=== PATIENT | male | born 1990 | race African-American/Black ===

== ENCOUNTER 2024-03-01 07:43 | Emergency (ER) | payer BC ==
--- OUTSIDE RECORDS SUMMARY | 2024-03-01 07:46 | XMS REPORT | Continuity of Care Document ---
Author Name Unknown Address [address] [place] [address] [facility] thconnect Address [address] [place] [address] Care Team Providers Care Color Expert Name Role Phone Татьяна Barreto Primary Care Physician [phone] Immunizations Ordered Immunization Name Filled Immunization Name Date Status Comments Source IPV IPV 2023-11-23 00:00:00 Completed Vic Lu Bennie Vital Signs Vital Name Observation Time Observation Value Comments S ource Height Measured 2023-11-23 11:55:00 62.00 inches Vic Avery Body Temperature 2023-11-23 11:55:00 98.00 degrees Vic Avery Heart Rate 2023-11-23 11:55:00 54.00 /min Ivaniafrancois Lu Bennie Respiratory Rate 2023-11-23 11:55:00 Vic Avery BP Systolic 2023-11-23 11:55:00 98 mm[Hg] Step hen Tabitha Avery BP Diastolic 2023-11-23 11:55:00 65 mm[Hg] Yared Avery Weight Measured 2023-11-23 11:55:00 124.00 pounds Vic Avery Encounters Start Date/Time End Date/Time Encounter Type Admission Type Attending Clinicians Care Facility Care Department Encounter ID Source 2023-11-23 11:53:33 2023-11-23 11:53:33 Outpatient [facility] [id number] Vic Tabitha Bennie 2023-11-23 00:00:00 2023-11-23 00:00:00 Outpatient Visit [facility] [id number] Vic Avery
--- NOTE | 2024-03-01 08:00 | EDPHYS ---
Physician Documentation [facility] Name: Dann Jang Age: 33 yrs Sex: Male : 1990 Arrival Date: 03/01/2024 Time: 07:43 Bed IW1 Private MD: None, None ED Physician Mihir Martínez HPI: 03/01 10:53 This 33 yrs old Black Male presents to ER via Ambulatory with complaints of Abdominal ms3 Pain. 10:53 Dann Jang, a 33-year-old male, presents to the Emergency Department with ms3 complaints of stomach pain associated with a known history of gastritis. He reports that the pain began at around 5 AM today and rates it as a 9 out of 10 in severity. Dann has a previous gastritits, confirmed during prior visits to this facility and hospitals in [facility]. He has been treated with Protonix, which provided relief, but he has since run out of the medication. Dann reports his stools are not black or bloody. He has not followed up with any healthcare provider since his last visit, as he was instructed to return if symptoms recurred. He is seeking a refill of his medication and possibly a new prescription.. Historical: - Allergies: 07:52 dayquil (Upset stomach); iw 07:52 Tylenol (Upset stomach); iw - Home Meds: 07:52 None [Active]; iw - PMHx: 07:52 Gastroesophageal reflux disease; iw - Immunization history:: Adult Immunizations not up to date. - Infectious Disease History:: Denies. - Social history:: Smoking status: Patient denies any tobacco usage or history of. ROS: 10:53 Constitutional: Negative for fever, and chills. Neck: Negative for injury, pain, and ms3 swelling, Cardiovascular: Negative for chest pain, and palpitations. Respiratory: Negative for shortness of breath, cough, wheezing, and pleuritic chest pain, 10:53 MS/Extremity: Negative for injury and deformity, Skin: Negative for injury, rash, and discoloration, 10:53 Abdomen/GI: Positive for abdominal pain, Exam: 10:53 Constitutional: This is a well developed, well nourished patient who is awake, alert, ms3 and in no acute distress. Chest/axilla: Normal chest wall appearance and motion. Nontender with no deformity. Cardiovascular: Regular rate and rhythm with a normal S1 and S2. No gallops, murmurs, or rubs. Normal PMI, no JVD. No pulse deficits. Respiratory: Lungs have equal breath sounds bilaterally, clear to auscultation and percussion. No rales, rhonchi or wheezes noted. No increased work of breathing, no retractions or nasal flaring. Abdomen/GI: Soft, non-tender, with normal bowel sounds. No distension or tympany. No guarding or rebound. No evidence of tenderness throughout. Skin: Warm, dry with normal turgor. Normal color with no rashes, no lesions, and no evidence of cellulitis. MS/ Extremity: Pulses equal, no cyanosis. Neurovascular intact. Full, normal range of motion. Vital Signs: 07:51 BP 103 / 72; Pulse 53; Resp 16; Temp 97.1; Pulse Ox 99% on R/A; Weight 60.78 kg; Height iw 5 ft. 5 in. ; Pain 410; 07:51 Body Mass Index 22.06 (60.78 kg, 166 cm) iw 07:51 Pain Scale: Adult iw MDM: 07:58 Medical Screening Exam initiated ms3 10:53 Differential diagnosis: gastritis, non-specific abd pain, Peptic Ulcer Disease. Data ms3 reviewed: vital signs, nurses notes, and as a result, I will discharge patient. I considered the following discharge prescriptions or medication management in the emergency department Medications were administered in the Emergency Department. See MAR. Counseling: I had a detailed discussion with the patient and/or guardian regarding the historical points, exam findings, and any diagnostic results supporting the discharge/admit diagnosis, the need for outpatient follow up, to return to the emergency department if symptoms worsen or persist or if there are any questions or concerns that arise at home. Special discussion: Based on the patient's Hx, exam, and Dx evaluation, there is no indication for emergent surgery or inpatient Tx. It is understood by the patient/guardian that if the Sx's persist or worsen they need to return immediately for re-evaluation. ED course: Patient abdominal exam benign, patient alert and orient x 4, no apparent stress, nontoxic-appearing. Patient follow-up with primary care patient to follow-up with gastroenterology in 2 to 3 days. Patient understands agrees with plan. All questions were answered. Return precautions discussed include worsening symptoms, or any other concerns.. Administered Medications: 08:13 Drug: GI Cocktail with - (Maalox PO 30 ml, Lidocaine Mucous Membrane 2 % 20 iw ml, Phenobarbital-Belladonna PO 10 ml) PO once Route: PO; 08:30 Follow up: Response: No adverse reaction iw 08:13 Drug: Famotidine PO 40 mg PO once Route: PO; iw 08:30 Follow up: Response: No adverse reaction iw Disposition: 11:51 Chart complete. ms3 Disposition Summary: 03/01/24 08:00 Discharge Ordered Notes: Location: Home ms3 Condition: Stable ms3 Diagnosis - Gastritis, unspecified ms3 Followup: ms3 - With: Pilo Mosqueda MD - When: 2 - 3 days - Reason: Recheck today's complaints Discharge Instructions: - Discharge Summary Sheet ms3 - Gastritis, Adult ms3 Forms: - Medication Reconciliation Form ms3 - Antibiotic Education ms3 - Prescription Opioid Use ms3 - Patient Portal Instructions ms3 - Leadership Thank You Letter ms3 Prescriptions: - Protonix 40 mg Oral Tablet - take 1 tablet ORAL route once daily; 30 tablet; Refills: 0, Product Selection ms3 Permitted Signatures: Rupali Manriquez RN RN iw Mihir Martínez DO DO ms3
--- NOTE | 2024-03-01 08:00 | ER ---
Nurse's Notes [facility] Name: Dann Jang Age: 33 yrs Sex: Male : 1990 Arrival Date: 03/01/2024 Time: 07:43 Bed IW1 Private MD: None, None Diagnosis: Gastritis, unspecified Presentation: 03/01 07:51 Chief complaint: Patient states: mid abd pain started 5 am this morning , it comes and iw goes, he's been here for it in the past. Coronavirus screen: At this time, the client does not indicate any symptoms associated with coronavirus-19. Ebola Screen: No symptoms or risks identified at this time. Initial Sepsis Screen: Does the patient meet any 2 criteria? No. Patient's initial sepsis screen is negative. Does the patient have a suspected source of infection? No. Patient's initial sepsis screen is negative. Risk Assessment: Do you want to hurt yourself or someone else? Patient reports no desire to harm self or others. Onset of symptoms was March 01, 2024. 07:51 Method Of Arrival: Ambulatory iw 07:51 Acuity: CORINA 3 iw Triage Assessment: 07:15 General: Appears in no apparent distress. comfortable, Behavior is calm, cooperative. iw Historical: - Allergies: 07:52 dayquil (Upset stomach); iw 07:52 Tylenol (Upset stomach); iw - Home Meds: 07:52 None [Active]; iw - PMHx: 07:52 Gastroesophageal reflux disease; iw - Immunization history:: Adult Immunizations not up to date. - Infectious Disease History:: Denies. - Social history:: Smoking status: Patient denies any tobacco usage or history of. Screenin:12 [facility] ED Fall Risk Assessment (Adult) History of falling in the last 3 months, iw including since admission No falls in past 3 months (0 pts) Confusion or Disorientation No (0 pts) Intoxicated or Sedated No (0 pts) Impaired Gait No (0 pts) Mobility Assist Device Used No (0 pt) Altered Elimination No (0 pt) Score/Fall Risk Level 0 - 2 = Low Risk Oriented to surroundings. Abuse screen: Denies threats or abuse. Denies injuries from another. Nutritional screening: No deficits noted. Tuberculosis screening: No symptoms or risk factors identified. Assessment: 07:15 General: Appears in no apparent distress. Behavior is calm, cooperative. Pain: iw Complains of pain in abdomen. Neuro: Level of Consciousness is awake, alert, obeys commands, Oriented to person, time, situation, Moves all extremities. Full function. Cardiovascular: Patient's skin is warm and dry. Respiratory: Respiratory effort is even, unlabored, Respiratory pattern is regular. GI: Abdomen is flat, non-distended, Bowel sounds present X 4 quads. Abd is soft and non tender X 4 quads. GI: Reports upper abdominal pain, nausea. Derm: Skin is intact, is healthy with good turgor. Musculoskeletal: Range of motion: intact in all extremities. Vital Signs: 07:51 BP 103 / 72; Pulse 53; Resp 16; Temp 97.1; Pulse Ox 99% on R/A; Weight 60.78 kg; Height iw 5 ft. 5 in. ; Pain 4/10; 07:51 Body Mass Index 22.06 (60.78 kg, 166 cm) iw 07:51 Pain Scale: Adult iw ED Course: 07:15 Patient has correct armband on for positive identification. Provided Education on: . iw 07:45 Patient arrived in ED. as 07:47 None, None is Private Physician. as 07:52 Triage completed. iw 07:52 Mihir Martínez DO is Attending Physician. ms3 07:53 Arm band placed on. iw 07:59 Pilo Mosqueda MD is Referral Physician. ms3 08:13 Rupali Manriquez, RN is Primary Nurse. iw 08:13 No provider procedures requiring assistance completed. Patient did not have IV access iw during this emergency room visit. Administered Medications: 08:13 Drug: GI Cocktail with - (Maalox PO 30 ml, Lidocaine Mucous Membrane 2 % 20 iw ml, Phenobarbital-Belladonna PO 10 ml) PO once Route: PO; 08:30 Follow up: Response: No adverse reaction iw 08:13 Drug: Famotidine PO 40 mg PO once Route: PO; iw 08:30 Follow up: Response: No adverse reaction iw Medication: 07:15 VIS not applicable for this client. iw Outcome: 08:00 Discharge ordered by . ms3 08:13 Discharged to home ambulatory, iw 08:13 Condition: good 08:13 Discharge instructions given to patient, Instructed on discharge instructions, follow up and referral plans. medication usage, Demonstrated understanding of instructions, follow-up care, medications, Prescriptions given X 1, 08:14 Patient left the ED. iw Signatures: Judy Cai Irene, ERIN RN iw Mihir Martínez DO DO ms3 Corrections: (The following items were deleted from the chart) 07:54 07:51 BP 103 / 72; Pulse 53bpm; Resp 16bpm; Pulse Ox 99% RA; Temp 97.1F; iw iw
[2024-03-01] MEDS ORDERED: MAGNES/ALUMIN/SIMET 30ML UCUP ONE (08:05)
[2024-03-01] MEDS ORDERED: FAMOTIDINE 20 MG TAB ONE (08:05)
[2024-03-01] MEDS ORDERED: LIDOCAINE VISCOUS 2% 10ML ORAL SOLN ONE (08:05)
[2024-03-01 08:30] VITALS: BP 103/72; TEMP 97.1; O2SAT 99
== END 2024-03-01 08:14 | disposition home or self-care (01) ==
LOC: ER 07:43
DX: K29.70 Gastritis, unspecified, without bleeding (principal); K21.9 Gastro-esophageal reflux disease without esophagitis; Z88.6 Allergy status to analgesic agent
CPT/HCPCS: 99283